=== PATIENT | male | born 1975 | race Caucasian/White ===

== ENCOUNTER 2022-06-27 08:18 | Emergency (ER) | payer OTHER ==
[2022-06-27 10:52] LABS: BASOPHIL 0.6 % (0-2); EOSINOPHIL 1.1 % (0-5); HCT 42.9 % (42.0-52.0); HGB 14.9 g/dl (13.2-18.0); LYMPHOCYTE 31.7 % (15-48); MCH 30.8 pg (25.0-31.0); MCHC 34.7 g/dL (32.0-36.0); MCV 88.6 fL (78.0-100.0); MONOCYTE 7.1 % (0-12); MPV 9.1 fL (6.0-9.5); NEUTROPHIL 58.1 % (41-80); NRBC 0; PLT 261 K/uL (150-400); RBC 4.84 M/uL (4.70-6.00); RDW 13.5 % (11.5-14.0); WBC 8.5 K/uL (4.0-10.5)
[2022-06-27 11:40] LABS: BUN 12 mg/dL (7-18); BUN/CREAT RATIO (CALC) 20.3 RATIO; CHLORIDE 101 mmol/L (98-107); CO2 (BICARBONATE) 27 mmol/L (21-32); CREATININE 0.59 mg/dL (0.67-1.17); GLUCOSE 186 mg/dL (74-106); POTASSIUM 4.2 mmol/L (3.5-5.1)
[2022-06-27 11:41] LABS: C-REACTIVE PROTEIN < 0.20 mg/dL (<=0.90)
[2022-06-27 11:50] LABS: INR 0.91 (0.9-1.2); PTT 24.2 SECONDS (24.9-34.6)
== END 2022-06-27 12:06 | disposition home or self-care (01) ==
LOC: FER 08:18
PROVIDERS: Emergency Medicine
DX: R23.3 Spontaneous ecchymoses (principal); M79.89 Other specified soft tissue disorders; R05.9 Cough, unspecified; Z79.82 Long term (current) use of aspirin
CPT/HCPCS: 36415; 71045; 80048; 83880; 85025; 85610; 85730; 86140